=== PATIENT | male | born 1960 ===

== ENCOUNTER 2017-05-10 17:38 | Observation (INO) | payer MEDICAID ==
--- NOTE | 2017-05-10 18:39 | ED PDOC ---
HPI: General Adult Time Seen by Provider: 05/10/17 17:50 Chief Complaint (Nursing): Palpitations Chief Complaint (Provider): Palpitations and Dizziness History Per: Family, Lithographer Helper (Interpreted by family as per patients request) History/Exam Limitations: no limitations Additional Complaint(s): Angus Barfield, a 57 year old male, who was recently diagnosed with atrial fibrillation presents to the ED complaining of palpitations and dizziness. The patient states that he has not followed up with a landscape engineer for his recent diagnosis. Denies fevers, chills, cough, vomiting and diarrhea. Of note: At home patient is on metoprolol for HTN and atrial fibrillation Past Medical History Reviewed: Historical Data, Nursing Documentation, Vital Signs Vital Signs: Last Vital Signs Temp 98.1 F 05/10/17 17:49 Pulse 88 05/11/17 00:06 Resp 16 05/11/17 00:06 BP 120/96 H 05/11/17 00:06 Pulse Ox 97 05/10/17 22:32 - Medical History PMH: Atrial Fibrillation - Surgical History Surgical History: No Surg Hx - Family History Family History: States: Other Other Family History: Cardiac Disease (father and brother) - Social History Current smoker - smoking cessation education provided: No Alcohol: > 2 Drinks/Day Drugs: Denies - Home Medications Home Medications: Ambulatory Orders Medication Instructions Recorded Losartan [Cozaar] 25 mg PO DAILY 05/10/17 Metoprolol Succinate XL [Toprol XL] 25 mg PO DAILY 05/10/17 - Allergies Allergies/Adverse Reactions: Allergies Allergy/AdvReac Type Severity Reaction Status Date / Time No Known Allergies Allergy Verified 05/10/17 18:30 Review of Systems ROS Statement: Except As Marked, All Systems Reviewed And Found Negative Constitutional: Negative for: Fever, Chills Cardiovascular: Positive for: Palpitations Respiratory: Negative for: Cough Gastrointestinal: Positive for: Vomiting, Diarrhea Neurological: Positive for: Dizziness Physical Exam - Reviewed Nursing Documentation Reviewed: Yes - Physical Exam Appears: Positive for: Non-toxic, No Acute Distress Head Exam: Positive for: ATRAUMATIC, NORMAL INSPECTION, NORMOCEPHALIC Skin: Positive for: Normal Color, Warm, Dry Eye Exam: Positive for: Normal appearance, EOMI, PERRL ENT: Positive for: Normal ENT Inspection Neck: Positive for: Normal, Painless ROM, Supple Cardiovascular/Chest: Positive for: Regular Rate, Rhythm, Chest Non Tender. Negative for: Tachycardia Respiratory: Positive for: Normal Breath Sounds. Negative for: Rales, Rhonchi, Wheezing, Respiratory Distress Gastrointestinal/Abdominal: Positive for: Normal Exam, Bowel Sounds, Soft. Negative for: Tenderness, Mass, Guarding, Rebound Back: Positive for: Normal Inspection. Negative for: L CVA Tenderness, R CVA Tenderness Extremity: Positive for: Normal ROM. Negative for: Tenderness, Pedal Edema, Calf Tenderness, Deformity, Swelling Neurologic/Psych: Positive for: Alert, Oriented, Gait - Laboratory Results Result Diagrams: 05/10/17 18:45 05/10/17 19:48 - ECG O2 Sat by Pulse Oximetry: 98 (RA) Pulse Ox Interpretation: Normal Medical Decision Making Medical Decision Makin Initial Impression: 57 year old male presenting with palpitations and dizziness Initial Plan: * B-type natriuretic * Comp Metabolic Panel * Troponin * CBC * CXR * Aspirin 325mg PO * Reevaluation EKG performed: A fib 78bpm 2100 Patient will be staying the hospital. Hospitalist has accepted patient (dr Menjivar) pt agreeable to plan, answered questions to pt and daughter at bedside pt needs cardiac monitoring and cardiology eval PMD Dr. Harrison ___ Scribe Attestation Documented by Kinjal Acosta acting as a scribe for Tarsha Noel MD. Provider Attestation All medical record entries made by the Scribe were at my direction and personally dictated by me. I have reviewed the chart and agree that the record accurately reflects my personal performance of the history, physical exam, medical decision making, and the department course for this patient. I have also personally directed, reviewed, and agree with the discharge instructions and disposition. Disposition - Clinical Impression Clinical Impression: Palpitations - Patient ED Disposition Is Patient to be Admitted: Yes Counseled Patient/Family Regarding: Studies Performed, Diagnosis - Disposition Disposition Time: 19:35 Condition: STABLE
--- NOTE | 2017-05-10 18:57 | RAD ---
HISTORY: palpitations COMPARISON: No prior. TECHNIQUE: Chest PA and lateral FINDINGS: LUNGS: Hyperinflation, manifestations of COPD. No active pulmonary disease. PLEURA: No significant pleural effusion identified. No pneumothorax apparent. CARDIOVASCULAR: No radiographic findings to suggest acute or significant cardiovascular disease. OSSEOUS STRUCTURES: No significant abnormalities. VISUALIZED UPPER ABDOMEN: Normal. OTHER FINDINGS: None. IMPRESSION: No active disease.
[2017-05-10 19:55] LABS: BASO # 0.1 K/uL (0.0-0.2); BASO % 0.9 % (0.0-2.0); EOS # 0.1 K/uL (0.0-0.7); EOS % 1.1 % (0.0-4.0); HEMOGLOBIN 15.7 g/dL (12.0-18.0); MEAN CORPUSCULAR HEMOGLOBIN 29.2 pg (27.0-31.0); MEAN CORPUSCULAR HGB CONC 33.6 g/dL (33.0-37.0); MONO # 0.5 K/uL (0.0-0.8); MONO % 5.9 % (0.0-10.0); NEUT # 4.3 K/uL (1.8-7.0); NEUT % 54.1 % (50.0-75.0); NRBC % 0.1 % (0.0-0.0); RBC 5.37 Mil/uL (4.40-5.90); RED CELL DISTRIBUTION WIDTH 13.3 % (11.5-14.5)
[2017-05-10 20:02] LABS: ALB/GLOB RATIO 1.5 (1.0-2.1); ALBUMIN 4.4 g/dL (3.5-5.0); ALT/SGPT 43 U/L (21-72); AST/SGOT 24 U/L (17-59); BLOOD UREA NITROGEN 18 mg/dl (9-20); CALCIUM 9.7 mg/dL (8.4-10.2); GFR AFRICAN-AMERICAN > 60; GFR NON-AFRICAN AMERICAN > 60
[2017-05-10 20:14] LABS: B-TYPE NATRIURETIC PEPTIDE 678 pg/ml (0-900)
--- NOTE | 2017-05-10 21:24 | CP.PCM.HP ---
History of Present Illness - History of Present Illness History of Present Illness: PCP: Dominic Harrison MD Chief Complaint: Palpitation/ Chest pain/ Lightheadedness HPI: 57 years old male who speaks only Mozamb[place], has Hx of HTN and Atrial Fibrillation Dx one week ago, started on Metoprolol but has not followed up with his teasel setter yet. He comes to the ED with worsening of the lightheadedness and some blurring of the vision , palpitation and an intermittent pain across the chest, not associated with exertion, non radiating and relieved spontaneously. In the ED his Heart Rate was 86/min PMH: HTN; A Fib PSH: Cataract surgery to the right eye SH: Social Alcohol drinker; no cigarette smoking; no illegal drug use; live with the family; works at a gas station FH: Brother and Father with cardiac Disease. And brother with surgery because of blocked blood vessel of the heart. Allergies: NKDA Medication: Losartan/ Metoprolol? Vitamin D Present on Admission - Present on Admission Any Indicators Present on Admission: No History of DVT/PE: No History of Uncontrolled Diabetes: No Urinary Catheter: No Decubitus Ulcer Present: No Review of Systems - Constitutional Constitutional: absent: Anorexia, Chills, Fatigue, Fever, Headache, Lethargy - EENT Eyes: Requires Corrective Lenses. absent: Diplopia, Floaters, Photophobia, Sees Flashes Ears: absent: Decreased Hearing, Ear Discharge, Ear Pain, Tinnitus Nose/Mouth/Throat: absent: Epistaxis, Nasal Congestion, Nasal Discharge, Sinus Pain, Sinus Pressure - Cardiovascular Cardiovascular: Chest Pain, Palpitations. absent: Claudication, Dyspnea, Edema , Leg Edema - Respiratory Respiratory: Cough. absent: Dyspnea, Wheezing, Stridor - Gastrointestinal Gastrointestinal: absent: Constipation, Diarrhea, Nausea, Vomiting - Genitourinary Genitourinary: absent: Dysuria, Flank Pain, Hematuria, Urinary Frequency - Musculoskeletal Musculoskeletal: Arthralgias. absent: Back Pain, Muscle Weakness Additional comments: Right knee pain - Integumentary Integumentary: absent: Pruritus, Rash, Skin Ulcer, Sores, Striae, Swelling - Neurological Neurological: Dizziness. absent: Confusion, Focal Weakness, Headaches, Weakness - Psychiatric Psychiatric: Depression. absent: Anxiety, Panic Attacks - Endocrine Endocrine: absent: Palpitations, Polydipsia, Polyphagia, Polyuria - Hematologic/Lymphatic Hematologic: absent: Easy Bleeding, Easy Bruising Past Patient History - Past Medical History & Family History Past Medical History?: Yes - Past Social History Smoking Status: Never Smoked Chewing Tobacco Use: No Cigar Use: No Alcohol: < 2 Drinks/Day Drugs: Denies Home Situation {Lives}: With Family - CARDIAC Hx Atrial Fibrillation: Yes Hx Hypertension: Yes - PULMONARY Hx Respiratory Disorders: No - NEUROLOGICAL Hx Neurological Disorder: No - HEENT Hx HEENT Problems: No - ENDOCRINE/METABOLIC Hx Endocrine Disorders: No - HEMATOLOGICAL/ONCOLOGICAL Hx Blood Disorders: No - INTEGUMENTARY Hx Dermatological Problems: No - MUSCULOSKELETAL/RHEUMATOLOGICAL Hx Arthritis: Yes - GASTROINTESTINAL Hx Gastrointestinal Disorders: No - GENITOURINARY/GYNECOLOGICAL Hx Genitourinary Disorders: No - PSYCHIATRIC Hx Depression: Yes Hx Substance Use: No - SURGICAL HISTORY Hx Cataract Extraction: Yes - ANESTHESIA Hx Anesthesia: No Meds Allergies/Adverse Reactions: Allergies Allergy/AdvReac Type Severity Reaction Status Date / Time No Known Allergies Allergy Verified 05/10/17 18:30 Physical Exam - Constitutional Appears: No Acute Distress - Head Exam Head Exam: ATRAUMATIC, NORMAL INSPECTION, NORMOCEPHALIC - Eye Exam Eye Exam: EOMI, Normal appearance Pupil Exam: NORMAL ACCOMODATION, PERRL - ENT Exam ENT Exam: Mucous Membranes Moist, Normal Exam, Normal External Ear Exam, Normal Oropharynx - Neck Exam Neck exam: Positive for: Full Rom, Normal Inspection. Negative for: Lymphadenopathy, Tenderness - Respiratory Exam Respiratory Exam: Clear to Auscultation Bilateral. absent: Rales, Rhonchi, Wheezes - Cardiovascular Exam Cardiovascular Exam: Irregular Rhythm, +S1, +S2. absent: Gallop - GI/Abdominal Exam GI & Abdominal Exam: Normal Bowel Sounds, Soft. absent: Mass, Organomegaly, Tenderness - Rectal Exam Rectal Exam: Deferred - Extremities Exam Extremities exam: Positive for: full ROM, normal inspection. Negative for: calf tenderness, tenderness - Back Exam Back exam: NORMAL INSPECTION. absent: CVA tenderness (L), CVA tenderness (R) - Neurological Exam Neurological exam: Alert, CN II-XII Intact, Oriented x3, Reflexes Normal - Psychiatric Exam Psychiatric exam: Normal Affect, Normal Mood - Skin Skin Exam: Dry, Intact, Normal Color, Warm Results - Vital Signs Recent Vital Signs: Last Vital Signs Temp 98.1 F 05/10/17 17:49 Pulse 86 05/10/17 17:49 Resp 16 05/10/17 17:49 BP 142/95 H 05/10/17 17:49 Pulse Ox 98 05/10/17 18:46 - Labs Result Diagrams: 05/10/17 18:45 05/10/17 19:48 Labs: Laboratory Results - last 24 hr 05/10/17 05/10/17 18:45 19:48 WBC 8.0 RBC 5.37 Hgb 15.7 Hct 46.7 MCV 87.0 MCH 29.2 MCHC 33.6 RDW 13.3 Plt Count 196 MPV 9.0 Neut % (Auto) 54.1 Lymph % (Auto) 38.0 [place] % (Auto) 5.9 Eos % (Auto) 1.1 Baso % (Auto) 0.9 Neut # 4.3 Lymph # 3.0 [place] # 0.5 Eos # 0.1 Baso # 0.1 Sodium 139 Potassium 4.1 Chloride 106 Carbon Dioxide 25 Anion Gap 13 BUN 18 Creatinine 0.9 Est GFR ( Amer) > 60 Est GFR (Non-Af Amer) > 60 Random Glucose 120 H Calcium 9.7 Total Bilirubin 0.9 AST 24 ALT 43 Alkaline Phosphatase 88 Troponin I < 0.0120 NT-Pro-B Natriuret Pep 678 Total Protein 7.5 Albumin 4.4 Globulin 3.0 Albumin/Globulin Ratio 1.5 - EKG Data EKG comments: Atrial Fibrillation 78/min incomplete RBBB - Imaging and Cardiology Chest x-ray Status: Image reviewed by me, Report reviewed by me Additional comment: No infiltrate Assessment & Plan - Assessment and Plan (Free Text) Assessment: #. Chest pain #. A Fib #. HTN Plan: 57 years old male who speaks only [place], has Hx of HTN and Atrial Fibrillation Dx one week ago, started on Metoprolol but has not followed up with his teasel setter yet, comes with worsening of the lightheadedness and some blurring of the vision , palpitation and an intermittent pain across the chest. #. A Fib with controlled rate in the ED, in patient referring Palpitation and lightheadedness which more likely will be due to a rapid response A Fib than to medication. The patient's CHADS score is 1. because of the HTN. Because of his duration of A Fib and it being on and off symptomatic, I would start Anticoagulant with the CHADS score of 1. - Consult Cardiology Dr Magallon - Lovenox img/kg Q12H - ASA 325 given in ED. Continue with 81mg PO daily - Metoprolol - ECHO to check Chamber size and for Thrombus if visualized #. Chest pain probably caused by the Arrhythmia, r/o ACS - Cardiology on consult - Serial Troponin - Serial EKG - ECHO rto assess wall motion #. HTN - Metoprolol/ Losartan #. Stress ulcer prophylaxis with Pepcid #. DVT Prophylaxis - Patient on Lovenox #. Code Status: Full - Date & Time Date: 05/10/17 Time: 21:24
[2017-05-10] MEDS ORDERED: Enoxaparin 80 mg Syringe SC STA (22:36)
[2017-05-10 23:27] LABS: INR 1.2 (0.9-1.2); PARTIAL THROMBOPLASTIN TIME 38.4 Seconds (25.6-37.1); PROTHROMBIN TIME 12.5 Seconds (9.8-13.1)
[2017-05-11 00:52] VITALS: RESP 18
[2017-05-11] MEDS ORDERED: Pneumococcal 23-Valent Vaccine IM ONE (06:00)
[2017-05-11 08:19] VITALS: BP 116/78; PULSE 71; TEMP 97.6
[2017-05-11] MEDS ORDERED: Metoprolol Succinate 25 mg XL Tab PO SCH (09:00)
[2017-05-11] MEDS ORDERED: Enoxaparin 80 mg Syringe SC SCH (09:00)
--- NOTE | 2017-05-11 10:40 | CARD ---
APPROVED REPORT EKG Measurement Heart [id number] <Conclusion> Atrial fibrillation Incomplete right bundle branch block Abnormal ECG
--- NOTE | 2017-05-11 10:46 | CP.PCM.DIS ---
Provider - Provider Date of Admission: 05/10/17 20:00 Attending physician: Lion Valdez Primary care physician: Dr. Harrison Time Spent in preparation of Discharge (in minutes): 20 Hospital Course - Lab Results Lab Results: Most Recent Lab Values WBC 8.0 K/uL (4.8-10.8) 05/10/17 18:45 RBC 5.37 Mil/uL (4.40-5.90) 05/10/17 18:45 Hgb 15.7 g/dL (12.0-18.0) 05/10/17 18:45 Hct 46.7 % (35.0-51.0) 05/10/17 18:45 MCV 87.0 fl (80.0-94.0) 05/10/17 18:45 MCH 29.2 pg (27.0-31.0) 05/10/17 18:45 MCHC 33.6 g/dL (33.0-37.0) 05/10/17 18:45 RDW 13.3 % (11.5-14.5) 05/10/17 18:45 Plt Count 196 K/uL (130-400) 05/10/17 18:45 MPV 9.0 fl (7.2-11.7) 05/10/17 18:45 Neut % (Auto) 54.1 % (50.0-75.0) 05/10/17 18:45 Lymph % (Auto) 38.0 % (20.0-40.0) 05/10/17 18:45 [place] % (Auto) 5.9 % (0.0-10.0) 05/10/17 18:45 Eos % (Auto) 1.1 % (0.0-4.0) 05/10/17 18:45 Baso % (Auto) 0.9 % (0.0-2.0) 05/10/17 18:45 Neut # 4.3 K/uL (1.8-7.0) 05/10/17 18:45 Lymph # 3.0 K/uL (1.0-4.3) 05/10/17 18:45 [place] # 0.5 K/uL (0.0-0.8) 05/10/17 18:45 Eos # 0.1 K/uL (0.0-0.7) 05/10/17 18:45 Baso # 0.1 K/uL (0.0-0.2) 05/10/17 18:45 PT 12.5 Seconds (9.8-13.1) 05/10/17 23:03 INR 1.2 (0.9-1.2) 05/10/17 23:03 APTT 38.4 Seconds (25.6-37.1) H 05/10/17 23:03 Sodium 139 mmol/l (132-148) 05/10/17 19:48 Potassium 4.1 MMOL/L (3.6-5.0) 05/10/17 19:48 Chloride 106 mmol/L (98-107) 05/10/17 19:48 Carbon Dioxide 25 mmol/L (22-30) 05/10/17 19:48 Anion Gap 13 (10-20) 05/10/17 19:48 BUN 18 mg/dl (9-20) 05/10/17 19:48 Creatinine 0.9 mg/dL (0.8-1.5) 05/10/17 19:48 Est GFR ( Amer) > 60 05/10/17 19:48 Est GFR (Non-Af Amer) > 60 05/10/17 19:48 Random Glucose 120 mg/dL (75-110) H 05/10/17 19:48 Calcium 9.7 mg/dL (8.4-10.2) 05/10/17 19:48 Total Bilirubin 0.9 mg/dl (0.2-1.3) 05/10/17 19:48 AST 24 U/L (17-59) 05/10/17 19:48 ALT 43 U/L (21-72) 05/10/17 19:48 Alkaline Phosphatase 88 U/L (38-126) 05/10/17 19:48 Troponin I < 0.0120 ng/mL (0.00-0.120) 05/11/17 06:32 NT-Pro-B Natriuret Pep 678 pg/ml (0-900) 05/10/17 19:48 Total Protein 7.5 G/DL (6.3-8.2) 05/10/17 19:48 Albumin 4.4 g/dL (3.5-5.0) 05/10/17 19:48 Globulin 3.0 gm/dL (2.2-3.9) 05/10/17 19:48 Albumin/Globulin Ratio 1.5 (1.0-2.1) 05/10/17 19:48 - Hospital Course Hospital Course: 57 years old male who speaks only Welsh, with PMH of HTN and Atrial Fibrillation Dx one week ago, started on Metoprolol but has not followed up with his favor maker yet, comes with worsening of the lightheadedness and some blurring of the vision , palpitation and an intermittent pain across the chest. patient was placed under observation for chest pain to rule out ACS. placed on observation , tele monitor Troponins were negative tele monitor showed rate controlled Afib his medications reviewed. patient on losartan 25 mg po daily and metoprolol XL 50 mg po DQ HIs BP measures on the low side 110 - 120 SBP . patient gives history of episodes of dizziness, blurry vision for few seconds while working. Will d/c losartan and continue Metoprolol for rate control Echo showed normal wall motion, normal LV , EF 65 % ,no valvular abnormality CAHDS score is 1 . will continue ASa 81 mg po daily patient has appointment with his favor maker in 3 days He is hemodynamically stable, afebrile, afib on monitor rate controlled, chest pain free Will d/c patient home Follow up with his PMD and favor maker 1. A Fib with controlled rate continue ASa 81 mg po Qd and Metoprolol Xl 50 mg Po Qd Echo showed normal wall motion , EF 65 5 , no valvular abnormality Follow up with favor maker as out patient 2.Atypical Chest pain ACS ruled out Trop x 2 negative echo showed normal EF and wall motion 3. HTN patient with episodes of ligtht headedness and blurry vision on and off D/c losartan continue Metoprolol Xl 50 mg po daily Discharge Exam - Head Exam Head Exam: ATRAUMATIC, NORMAL INSPECTION, NORMOCEPHALIC - Eye Exam Eye Exam: EOMI, PERRL Pupil Exam: NORMAL ACCOMODATION - ENT Exam ENT Exam: Normal Exam - Neck Exam Neck exam: Full Rom, Normal Inspection - Respiratory Exam Respiratory Exam: Clear to PA & Lateral, NORMAL BREATHING PATTERN. absent: Rales, Rhonchi, Wheezes, Respiratory Distress - Cardiovascular Exam Cardiovascular Exam: Irregular Rhythm, +S1, +S2. absent: JVD - GI/Abdominal Exam GI & Abdominal Exam: Normal Bowel Sounds, Soft. absent: Distended, Guarding, Rebound, Tenderness - Rectal Exam Rectal Exam: Deferred - Extremities Exam Extremities exam: normal capillary refill, normal inspection, pedal pulses present - Back Exam Back exam: NORMAL INSPECTION - Neurological Exam Neurological exam: Alert, CN II-XII Intact, Oriented x3, Reflexes Normal - Psychiatric Exam Psychiatric exam: Normal Affect, Normal Mood - Skin Skin Exam: Dry, Intact, Normal Color, Warm Discharge Plan - Discharge Medications Prescriptions: Aspirin 81 mg PO DAILY #30 tab.chew Metoprolol Tartrate [Lopressor] 50 mg PO BID #60 tab - Follow Up Plan Condition: STABLE Disposition: HOME/ ROUTINE Patient education suggested?: Yes Instructions: Palpitations (DC) Additional Instructions: Activity as tolerated. Heart healthy, low fat, low cholesterol diet. Follow-up w / Primary Doctor and Cardiology, to call for appointment. Referrals: Dominic Harrison [Staff Provider] -
--- NOTE | 2017-05-11 10:48 | CARD ---
APPROVED REPORT EXAM: Two-dimensional and M-mode echocardiogram with Doppler and color Doppler. Other Information Quality : GoodRhythm : Atrial Fibrillation INDICATION Chest Pain 2D DIMENSIONS IVSd1.25 (0.7-1.1cm)LVDd4.29 (3.9-5.9cm) LVOT Diameter1.73 (1.8-2.4cm)PWd0.86 (0.7-1.1cm) IVSs1.37 (0.8-1.2cm)LVDs4.08 (2.5-4.0cm) FS (%) 5.0 %PWs1.16 (0.8-1.2cm) M-Mode DIMENSIONS Left Atrium (MM)5.03 (2.5-4.0cm)IVSd0.97 (0.7-1.1cm) Aortic Root3.03 (2.2-3.7cm)LVDd5.24 (4.0-5.6cm) Aortic Cusp Exc.2.03 (1.5-2.0cm)PWd1.09 (0.7-1.1cm) IVSs1.47 cmFS (%) 47 % LVDs2.79 (2.0-3.8cm)PWs1.47 cm Mitral Valve E/A ratio0.0 TDI E/Lateral E'0.0E/Medial E'0.0 Pulmonary Valve PV Peak Acaztnvv139.8cm/s LEFT VENTRICLE The left ventricle is normal size. There is normal left ventricular wall thickness. The left ventricular function is normal. The left ventricular ejection fraction is within the normal range. The Ejection Fraction is 65-70%. There is normal LV segmental wall motion. The left ventricular diastolic function is normal. No left ventricle thrombus noted on this study. There is no mass noted in the left ventricle. RIGHT VENTRICLE The right ventricle is normal size. There is normal right ventricular wall thickness. The right ventricular systolic function is normal. ATRIA The left atrium size is normal. The right atrium size is normal. The interatrial septum is intact with no evidence for an atrial septal defect. AORTIC VALVE The aortic valve is normal in structure and function. No aortic regurgitation is present. There is no aortic valvular stenosis. There is no aortic valvular vegetation. MITRAL VALVE The mitral valve is normal in structure and function. There is no evidence of mitral valve prolapse. There is no mitral valve stenosis. There is no mitral valve regurgitation noted. TRICUSPID VALVE The tricuspid valve is normal in structure and function. There is no tricuspid valve regurgitation noted. There is no tricuspid valve prolapse or vegetation. There is no tricuspid valve stenosis. PULMONIC VALVE The pulmonary valve is normal in structure and function. There is no pulmonic valvular regurgitation. There is no pulmonic valvular stenosis. GREAT VESSELS The aortic root is normal in size. The IVC is normal in size and collapses >50% with inspiration. PERICARDIAL EFFUSION The pericardium appears normal. There is no pleural effusion. <Conclusion> The left ventricle is normal size. The left ventricular function is normal. The left ventricular ejection fraction is within the normal range. The Ejection Fraction is 65-70%.
[2017-05-11 11:13] VITALS: O2SAT 97
== END 2017-05-11 11:35 | disposition home or self-care (01) ==
LOC: H.ER 17:38 → H.ERHOLD 20:00 → H.TEL 05-11 00:50
PROVIDERS: ADMIT Internal Medicine; ATTEND Internal Medicine
DX: I48.91 Unspecified atrial fibrillation (principal); I10 Essential (primary) hypertension; R07.89 Other chest pain; Z23 Encounter for immunization